=== PATIENT | male | born 1975 | race Caucasian/White ===

== ENCOUNTER → 2017-06-30 17:57 | Outpatient (CLI) | payer OTHER, SELFPAY ==
--- NOTE | 2017-06-30 18:03 | RAD_ITS ---
STUDY: X-RAY - RIGHT HAND THUMB REASON FOR EXAM: Male, 41 years old. Evaluate for foreign body within the thumb. TECHNIQUE: 3 view(s) of the thumb were obtained. COMPARISON: None. FINDINGS: Normal first metacarpus. 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 Normal phalanges and interphalangeal joints. There is no demonstrated fracture. The soft tissue structures are unremarkable. RAD/Finger(s) Min 2 Views IMPRESSION: No radiographic evidence for radiopaque foreign body. Electronically Signed: Nicole Pickering MD at 12:19 EDT , Service support ,
== END ==
DX: M79.644 Pain in right finger(s) (principal)
CPT/HCPCS: 73140

== ENCOUNTER → 2022-08-25 | Outpatient (CLI) | payer BC, SELFPAY ==
--- NOTE | 2022-08-25 17:21 | MRI_ITS ---
STUDY: MRI CERVICAL SPINE WITHOUT CONTRAST REASON FOR EXAM: Male, 46 years old. WEAKNESS OF EXTREMITY, numbness/tingling TECHNIQUE: Standardized fat and water weighted pulse sequences were obtained in the sagittal and axial planes. COMPARISON: None FINDINGS: Normal foramen magnum and brainstem-cervical cord junction. Normal craniovertebral junction. Normal anterior atlantoaxial articulation. Normal odontoid process. Normal cervical lordosis. Normal vertebral bodies and posterior osseous elements. C2-3: Normal endplates. Normal disc height and morphology. Normal central canal and intervertebral neuroforamina. C3-4: Normal endplates. Normal disc height and morphology. Normal central canal and intervertebral neuroforamina. C4-5: Normal endplates. Normal disc height and morphology. Normal central canal and intervertebral neuroforamina. C5-6: Loss of intervertebral disc height. There is endplate spondylosis of the vertebral body. Normal central canal and intervertebral neuroforamina. There is bilateral facet arthropathy. Posterior disc bulge. C6-7: Loss of intervertebral disc height. There is endplate spondylosis of the vertebral body. Normal central canal and intervertebral neuroforamina. There is bilateral facet arthropathy. Posterior disc bulge. C7-T1: Normal endplates. Normal disc height and morphology. Normal central canal and intervertebral neuroforamina. Normal cervical cord. Normal visualized soft tissue structures. MRI/Spine Cervical (Routine) IMPRESSION: Mild degenerative findings at C5-6 and C6-7. No spinal stenosis. Electronically Signed: Gerson Daugherty MD at 21:25 EDT ,
--- NOTE | 2022-08-25 17:21 | MRI_ITS ---
STUDY: MR Brain W/O Contrast 08/26/2022 9:22 PM REASON FOR EXAM: Male, 46 years old. WEAKNESS OF EXTREMITY, numbness/tingling COMPARISON: None TECHNIQUE: Standardized multiplanar fat and water weighted pulse sequences were obtained. MR Brain W/O Contrast FINDINGS: There is mild cerebral atrophy with widening of the extra-axial spaces and ventricular dilatation. Increased FLAIR regions in the brain may signify early microvascular ischemic changes, a demyelinating process, vasculitis, or sequela related to migraines. There is mild prominence of the vermian folia, consistent with atrophy of the vermis. The cerebellar hemispheres are normal. Normal bilateral basal ganglia. Normal thalami. There is no extra-axial fluid accumulation. Normal flow voids within the major intracranial circulation suggesting patency by spin echo criteria. Normal sella turcica, pituitary gland, infundibular stalk, optic chiasm and hypothalamus. Normal tectal plate and pineal gland. Normal midbrain, chad and medulla. Normal basal cisterns. Normal bilateral temporal bones. Normal bilateral internal auditory canals. No demonstrated orbital abnormality, within the constraints of a routine brain study. Normal visualized paranasal sinuses. Normal calvarium and skull base. Normal visualized soft tissue structures. Normal visualized upper cervical spine. Aspect score 10 MRI/Brain without Contrast IMPRESSION: (NOT LISTED IN ORDER OF SIGNIFICANCE) Increased FLAIR regions in the brain may signify early microvascular ischemic changes, a demyelinating process, vasculitis, or sequela related to migraines. Electronically Signed: Gerson Daugherty MD at 21:23 EDT ,
== END | disposition home or self-care (01) ==
LOC: MRI 17:02
DX: M50.322 Other cervical disc degeneration at C5-C6 level (principal); M62.81 Muscle weakness (generalized)
CPT/HCPCS: 70551; 72141